=== PATIENT | female | born 1970 | race Hispanic/Latino ===

== ENCOUNTER 2019-08-27 13:47 | Day surgery (SDC) | payer BC ==
[~2019-08-27 13:47] MED LIST: ISOVUE-370 76%-LOCM 1 ML ONE
[2019-08-27] MEDS ORDERED: Ondansetron PF 4 MG/2 ML Vial ONE (14:59)
[2019-08-27] MEDS ORDERED: Morphine 4 MG/ML VIAL ONE (14:59)
[2019-08-27 15:30] LABS: #Eosinphils 0.2 thou/uL (0.0-0.7); #Lymphocytes 1.8 thou/uL (1.20-3.40); #Monocytes 0.4 thou/uL (0.11-0.59); #Neutrophils 3.2 thou/uL (1.40-6.50); %Basophils 0.2 % (0.0-1.0); %Eosinophils 3.7 % (0.0-10.0); %Lymphocytes 32.1 % (21.0-51.0); %Monocytes 7.8 % (0.0-10.0); %Neutrophils 56.1 % (42.0-75.0); Hemoglobin 13.7 g/dL (12.0-16.0); Mean Corpuscular HGB CONC 33.7 g/dL (32.0-36.0); Mean Corpuscular Hemoglobin 30.5 pg (27.0-31.0); Mean Corpuscular Volume 90.6 fL (78.0-98.0); Mean Platelet Volume 7.7 fL (7.4-10.4); Platelet Count 282 thou/uL (130-400); RBC Distribution Width 11.9 % (11.5-14.5); Red Blood Cell (RBC) Count 4.49 mill/uL (4.20-5.40); White Blood Cell (WBC) Count 5.6 thou/uL (4.8-10.8)
[2019-08-27 15:39] LABS: BHCG - Serum Negative (NEGATIVE); Pregs Control Background? CLEAR/WHITE (CLR/WHITE); Pregs Control Bar Appear? YES (CONTROL BAR)
--- NOTE | 2019-08-27 15:40 | RAD ---
XR Chest 1 View Portable HISTORY: Cough COMPARISON: None FINDINGS: The heart size is normal. The lungs are well expanded without focal areas of consolidation, pneumothorax or pleural effusions. IMPRESSION: No radiographic evidence of acute cardiopulmonary process.
[2019-08-27 15:43] LABS: Bacteria/HPF None Seen HPF (None Seen); Bilirubin Negative (Negative); Blood, Urine Negative (Negative); Clarity Extra Turbid (Clear); Glucose, Urine (Dipstick) Normal (Negative); Leukocyte 250 Leu/uL (Negative); Nitrite Negative (Negative); Protein, Urine (Dipstick) 10 mg/dL (Neg-Trace); Squamous Epithelial 0-3 HPF (0-3); Urobilinogen Normal mg/dL (Less than 2); WBC/HPF 0-3 HPF (0-3)
[2019-08-27 15:52] LABS: ALT (SGPT) 27 U/L (8-55); AST (SGOT) 19 U/L (5-34); Albumin 4.4 g/dL (3.5-5.0); Alkaline Phosphatase 103 U/L (40-110); Anion Gap 12 mmol/L (10-20); BUN (Urea Nitrogen) 13 mg/dL (7.0-18.7); Bilirubin, Total 0.3 mg/dL (0.2-1.2); Calc. Creatinine Clearance 0 mL/min (70-130); Calcium 9.7 mg/dL (7.8-10.44); Carbon Dioxide 27 mmol/L (22-29); Chloride 104 mmol/L (98-107); Estimated GFR-MDRD 86; Globulin 3.2 g/dL (2.4-3.5); Glucose 93 mg/dL (70-105); Potassium 4.1 mmol/L (3.5-5.1); Protein, Total 7.6 g/dL (6.0-8.3); Sodium 139 mmol/L (136-145)
--- NOTE | 2019-08-27 16:13 | CT ---
CT abdomen and pelvis with IV contrast: HISTORY: Abdominal pain FINDINGS: The lung bases are clear. No calcified gallstones are seen. The liver, spleen, pancreas, adrenal glan ds and kidneys appear normal. No free air, free fluid or lymphadenopathy seen in the abdomen or pelvis. No aneurysmal dilatation of the abdominal aorta is seen. Uterus and ovaries are present. The small bowel loops are not abnormally dilated. A normal-appearing appendix is present. There are d egenerative changes in the spine. A fat-containing 5 x 5.5 x 7 cm left periumbilical hernia is seen. This has a neck of 18 mm. IMPRESSION: 1. No evidence of acute process. 2. Fat-containing left periumbilical hernia.
[2019-08-27] MEDS ORDERED: Fentanyl 100 MCG/2 ML VIAL ONE ×3 (16:45→20:08)
[2019-08-27] MEDS ORDERED: cefTRIAXone\\ROCEPHIN 1 GM VIAL ONE (17:15)
[2019-08-27] MEDS ORDERED: Bupivacaine HCl 0.5%/Epinephrine 1:200,000/PF 30 ml Vial ONE (18:07)
[2019-08-27] MEDS ORDERED: Lidocaine 2% PF 5 ML VIAL ONE (18:07)
[2019-08-27] MEDS ORDERED: Ketorolac Tromethamine 30 MG/ML VIAL ONE (18:29)
[2019-08-27] MEDS ORDERED: Famotidine/PF 20 mg/2ml Vial ONE (18:41)
[2019-08-27] MEDS ORDERED: SUGAMMADEX SODIUM 200 MG/2 ML VIAL ONE ×2 (18:41→19:44)
[2019-08-27] MEDS ORDERED: Meperidine HCl/PF 25 MG/ML VIAL ONE (18:41)
[2019-08-27] MEDS ORDERED: Midazolam HCl 2 mg/2 ml Vial ONE (18:56)
--- NOTE | 2019-08-27 19:14 | HP ---
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 Has had an umbilical hernia for 3 to 4 years, now has become incarcerated and is very painful to her. She has not had any nausea or vomiting. She presents to the emergency room. CAT scan of abdomen and pelvis reveals incarcerated fat. Bowel loops are normal. Plan is to repair this tonight in the operating room. ALLERGIES: NONE. SOCIAL HISTORY: Tobacco, none. Alcohol, none. MEDICATIONS: None. PAST SURGICAL HISTORY: Noncontributory. PAST MEDICAL HISTORY: She had some elevated liver function test in the past. She does have a history of anxiety. REVIEW OF SYSTEMS: Ten-point is otherwise noncontributory. PHYSICAL EXAMINATION: VITAL SIGNS: Weight 86 kg estimated, blood pressure 141/73, heart rate 87, respiratory rate 18, temperature 97.6 degrees. HEAD, EARS, EYES, NOSE, AND THROAT: Unremarkable. LUNGS: Clear to auscultation. CARDIAC: Regular rate and rhythm without murmur or gallop. ABDOMEN: Soft. Slightly obese. Incarcerated umbilical hernia. Mass below the umbilicus. This is not reducible and is very tender. SKIN: There are no skin color changes. EXTREMITIES: Unremarkable. No ankle edema. LABORATORY DATA: White count 5, hemoglobin 13. Liver function tests are normal. BMP is normal. test, negative. ASSESSMENT: Incarcerated umbilical hernia. PLAN: Open repair possibly using mesh. She understands the risks and benefits and consents. We will plan this as an outpatient. Questions were answered. Job ID: [id number]
[2019-08-27 21:15] LABS: Lactic Acid 1.1 mmol/L (0.5-2.2)
[2019-08-27] MEDS ORDERED: HYDROcodone/Acetaminophen 5/325 mg Tablet ONE (21:28)
--- NOTE | 2019-08-28 01:42 | OP ---
DATE OF PROCEDURE: 08/27/2019 PREOPERATIVE DIAGNOSIS: Incarcerated umbilical hernia. POSTOPERATIVE DIAGNOSES: Incarcerated umbilical hernia, incarcerated omentum. PROCEDURE PERFORMED: Repair of incarcerated umbilical hernia with resection of omentum and umbilicoplasty, closure without mesh. ANESTHESIA: General anesthesia, local 0.5% Marcaine with epinephrine 30 mL mixed with 2% Xylocaine 10 mL. DESCRIPTION OF PROCEDURE: The patient was taken to the operating room where under general anesthesia, abdomen was prepared with ChloraPrep and draped in routine fashion. Local anesthetic mixture was infiltrated into the skin and subcutaneous tissue about the operative site, total volume used. Infraumbilical incision made and carried down to the skin and subcutaneous tissue and the umbilical hernia sac entered, full of fluid, it was evacuated. Omental contents dissected free, resected with a cautery. Good hemostasis noted. Fascial defect was identified, dissected free. The umbilical skin was very thin and portion had to be excised and discarded. The fascial defect was closed in [id number] type fashion with interrupted suture of PDS pop-offs, #0. Subcutaneous tissue was approximated with 3-0 Monocryl. Skin, umbilicoplasty undertaken with a continuous suture of 4-0 Monocryl, and Dermabond was applied. The patient tolerated the procedure well. Job ID: [id number]
== END 2019-08-27 22:05 | disposition home or self-care (01) ==
LOC: ERS 13:47 → SDC 17:58
PROVIDERS: ATTEND Specialist
PROC: 0WQF0ZZ Repair Abdominal Wall, Open Approach (ICD-10-PCS; principal; 2019-08-27)
DX: K42.0 Umbilical hernia with obstruction, without gangrene (principal)
CPT/HCPCS: 36415; 71045; 74177; 80053; 81003; 81015; 83605; 84703; 85025; 96361; 96365; 96375; J0131; J0670; J0690; J0696; J1885; J2001; J2175; J2250; J2270; J2405; J3010; Q9966; S0028